=== PATIENT | female | born 1955 | race Caucasian/White ===

== ENCOUNTER → 2016-12-01 | Outpatient (CLI) | payer OTHER ==
[~2016-12-01] MED LIST: ATORVASTATIN CA10 MG PO; BENADRYL25 MG PO; BISACODYL SUPP10 MG RECTAL; ENOXAPARIN40 MG/0.1 SUBQ; IBUPROFEN 600600 M1 PO; NORCO 5-325 TA1 EACH PO; TUMS PO
== END ==
LOC: RAD 11-30 11:24
DX: Z12.31 Encounter for screening mammogram for malignant neoplasm of breast (principal)